=== PATIENT | female | born 1950 | race Caucasian/White ===

== ENCOUNTER → 2018-07-29 09:35 | Outpatient (CLI) | payer MEDICARE, SELFPAY ==
[2018-07-29 10:33] LABS: Add Manual Diff / Slide Review NO; Basophils Absolute Auto 100 /uL (0-100); Eosinophils Absolute Auto 200 /uL (0-450); Eosinophils Percent Auto 4.3 % (2-4); Hematocrit 38.3 % (36-46); Hemoglobin 12.6 g/dL (12.0-16.0); Lymphocytes Absolute Auto 1000 /uL (1100-4500); Lymphocytes Percent Auto 18.9 % (25-40); Mean Corpuscular Hemoglobin 30.1 PG (26-34); Monocytes Absolute Auto 400 /uL (0-900); Monocytes Percent Auto 7.3 % (3-14); Neutrophils Absolute Auto 3600 /uL (1500-7000); Neutrophils Percent Auto 68.5 % (50-75); Platelet Count 246 X10^3/uL (150-400); Red Cell Distribution Width 14.9 % (11.6-14.8); White Blood Cell Count 5.2 X10^3/uL (4.5-11.0)
[2018-07-29 10:47] LABS: Carbon Dioxide 30 mmol/L (22-32); Chloride 104 mmol/L (98-107); HEMOLYSIS < 15 (0-50); Potassium 4.4 mmol/L (3.4-5.1); Sodium 141 mmol/L (137-145)
== END ==
PROVIDERS: Visit Provider Orthopaedic Surgery
DX: M16.10 Unilateral primary osteoarthritis, unspecified hip (principal); Z01.818 Encounter for other preprocedural examination; Z01.812 Encounter for preprocedural laboratory examination
CPT/HCPCS: 36415; 80051; 85025; 93005; 93010

== ENCOUNTER 2018-08-20 06:04 | Inpatient (IN) | payer MEDICARE, SELFPAY ==
[2018-08-07 12:36] VITALS: BMI 27.8
[2018-08-20] VITALS (17 sets, daily range): BP systolic 78–142; BP diastolic 37–70; PULSE 60–78; RESP 12–18; TEMP 35.6–36.7; O2SAT 94–100; BMI 27.8
--- NOTE | 2018-08-20 06:00 | DI.RAD.S_ITS ---
PROCEDURE: XR PELVIS 1-2V INDICATIONS: post op Right SLOAN TECHNIQUE: 1 view of the lower pelvis acquired. COMPARISON: [facility] [place], [place], XR PELVIS WITH LATERAL HIP RIGHT, 08/12/2018, 15:14. FINDINGS: Bones: Patient is status post right hip arthroplasty, with hardware components in expected positions. The hip joint appears congruent. The visualized bony structures appear intact. There is mild/moderate left hip joint degeneration. Soft tissues: Overlying postoperative changes are noted. No suspicious soft tissue densities. IMPRESSION: Right hip prosthesis in anatomic alignment. Dictated by: Teagan Low M.D. on 08/20/2018 at 12:29 Approved by: Teagan Low M.D. on 08/20/2018 at 12:30
[2018-08-20] MEDS: CELECOXIB 200 MG CAPSULE PO (06:44)
[2018-08-20] MEDS: PREGABALIN 75 MG CAPSULE PO (06:44)
[2018-08-20] MEDS: ACETAMINOPHEN 325 MG TABLET 975 MG PO ×2 (06:44→22:36)
[2018-08-20] MEDS: LACTATED RINGERS 1,000 ML 42 ML IV ×2 (07:00→10:44)
--- NOTE | 2018-08-20 07:54 | PM.PREOP ---
Pre-operative Note Interval Note History & Physical reviewed/Exam performed by Physician: Yes Changes to H&P: No
[2018-08-20] MEDS: CEFAZOLIN 2 GM/100 ML FROZ.PIGGY IV ×3 (07:55→23:43)
--- NOTE | 2018-08-20 08:33 | SUR.OPER ---
Head on pillow. Supine on [place] table with bilateral legs secured in padded boots in traction leg positioners. . Arms on padded arm boards with <90 degree abduction, secured with tape over blanket over chest.
[2018-08-20] MEDS: KETOROLAC 30 MG/ML VIAL IV (08:49)
[2018-08-20] MEDS: MORPHINE 4 MG/ML INJ INJ (08:50)
[2018-08-20] MEDS: ROPIVACAINE 0.5% PF 5 MG/ML 20ML AMP 60 ML INJ (08:50)
[2018-08-20] MEDS: TRANEXAMIC ACID 1,000 MG VIAL 2000 MG INJ ×2 (08:55→09:48)
--- NOTE | 2018-08-20 09:54 | SUR.OPER ---
Patient's capillary refill of bilateral toes checked periodically during case. <1 second refill time each check. Dr. Hope notified.
--- NOTE | 2018-08-20 10:32 | P.OP_ITS ---
Operative Date/Time/Diagnoses Date of procedure: 08/20/18 Time of procedure: 10:22 Pre-op diagnosis: Right hip degenerative joint disease Post-op diagnosis: same Procedure & Clinicians Procedure: Right total hip arthroplasty, direct anterior approach (CPT code 67408 with bilingual executive assistant) Same procedure as scheduled: Yes Indications: Patient is an 67-year-old female with severe right hip DJD. The patient has pain with activities and at rest, limited ambulation and activity tolerance, difficulties with ADLs, and failure of conservative treatment. We have discussed the nature of condition, treatment options, risks and benefits, and patient elects to proceed with total hip arthroplasty via direct anterior approach and gives informed consent. Surgeon: Navid Hope Train Operations Manager: Dominic Mead Anesthesia Type: General and Spinal Operative Notes Closure Type: primary Specimen(s): none sent Prosthetic devices, grafts, tissues, transplants, or devices: Acetabulum: George and Nephew R3 acetabular component size 54 mm Femoral component: George and Nephew Anthology stem size 7 with standard offset Femoral head: 36 mm + 0 Oxinium Estimated Blood Loss (mL): 300 Blood products transfused: none Procedure in detail: Patient brought to the operating room and after satisfactory induction of the anesthetic and administration of IV antibiotics placed supine on the [place] table with all bony prominences well padded and both feet in the Honda boots. Procedure begins with the legs in the neutral position. Right hip and lower extremity prepped and draped in the usual sterile fashion. Longitudinal incision created beginning just distal and lateral to the ASIS. This was carried through the skin and subcutaneous tissues down to the fascia which was then incised longitudinally exposing the tensor fascia terry which was then retracted posteriorly. The superior femoral neck recess was identified and a Cobra retractor was placed. Gelpi retractor placed distally and the circumflex vessels identified and cauterized. Anteromedial retractors then placed and the anterior capsule was incised exposing the femoral neck. Superolateral capsulectomy performed. The level of the femoral neck cut was identified fluoroscopically then femoral neck cut created and then the femoral head removed with a corkscrew device. Acetabular retractors then placed an acetabular labrum and osteophytes excised. Sequential reaming of the acetabulum to 53 mm was performed with an excellent circumferential ream and fit with trial. A size 54 mm George and Nephew R3 acetabular component was selected inserted and impacted into position with excellent position and fixation achieved this is also confirmed with fluoroscopic images. Soft tissue then removed off the lateral femoral neck in further anterosuperior and posterior superior capsular tissue excised and further proximal lateral and posterior releases performed. Retractors then placed in the leg was dropped to the floor and abducted with maximal external rotation. The femoral canal was entered and the chili pepper broach was inserted. Position of the broach confirm satisfactory in both AP and lateral planes and the femoral neck cut length confirmed as satisfactory. Sequential broaching to 7 was performed with an excellent and snug fit with the 7 broach and a trial reduction yielded excellent leg length range of motion and stability characteristics and length offset and position confirmed with fluoroscopic images. The trial broach was then removed, and the wound was copiously irrigated. Periarticular soft tissues infiltrated with a combination of ropivacaine, Toradol, and morphine. Permanent size 7 George and Nephew anthology stem was then inserted with excellent fit and position and a permanent 36 mm +0 Oxinium head was impacted. The hip was then reduced and fluoroscopic images demonstrated excellent leg length and position. With the leg externally rotated 100? in full extension there was excellent stability with anterior distraction with the bone hook. The wound was again copiously irrigated and the fascia was closed with a running 1 Vicryl. Subcutaneous tissues closed with 2 O Vicryl and a running intracuticular stitch and skin adhesive. Sterile dressings applied. The anesthetic terminated. Patient taken to postanesthetic recovery in satisfactory condition. Complications: none Condition: stable Disposition: PACU Plan for aftercare: Patient will be admitted to the acute care ricks, and anticipate discharge on postop day 1 or 2 with follow-up in office in 10-14 days. Outpatient physical therapy will be arranged and patient will continue to observe posterior hip precautions. Patient will continue use of postoperative Lovenox for 10 days postop.
--- NOTE | 2018-08-20 12:19 | CM.DANOTE ---
DCP/Assessment: Reviewed chart. Patient is 67yr old female admitted to [facility] for right SLOAN performed on 08-20-[address] Hope. PCP is WHEEL SHOP SUPERVISOR/Liz Galdamez. Primary payor is [facility]. Met with patient and spouse/Juvencio at bedside explained CM/SW role. Patient recently completed surgery and now in room# 209. Patient alert and oriented but remains a lil groggy. Spouse reports that they live in [place] home [place] [facility]. Current d/c plan is return home when medically stable. Patient has therapy evaluation pending. Notified patient and spouse that CM team will continue to follow up if d/c needs were to arise. Patient and spouse appreciative. P: Anticipate home when stable but would benefit from CM visit after seen by therapy to determine needs. Unsure if patient already has FWW. Continue to follow closely. KAVITHA Rosen Discharge Planning/Care Management CM Discharge Assessment Start: 08/20/18 12:16 Freq: Status: Active Protocol: Document 08/20/18 12:16 KJS (Rec: 08/20/18 12:19 KJ [id number]) Discharge Planning Assessment Assigned Ultrasound Tech KAVITHA Rosen Contact Information Juvencio Joy (spouse) [phone] Advance Directives? No History Provided By Patient Significant Other Medical Record Prior Living Arrangements House Household Members spouse Type of transporation used prior to Drives own vehicle admit Independent with ADL's Yes Is patient alert and oriented? Yes Caregiver for Another No Comment Unsrue if patient owns FWW Patient/Family Preference OP PT Therapy Barriers to Discharge No Discharge Plan Home Transportation Arrangement Family to provide transport Additional Comment Unsure at this time. Whiteboard Updated in Patient Room with Yes name and ext. # of Ultrasound Tech Review Status In Process Next Review Type Continued Stay Review Pre-Anesthesia Assessment Start: 08/07/18 12:36 Freq: Status: Active Protocol: Document 08/07/18 12:36 CAB (Rec: 08/07/18 13:34 CAB [id number]) Pre-Anesthesia Assessment PAC Comment Pt has pacemaker, form on chart, no rep required Patient Also Known As (AKRadha) Christopher or Vilma Patient Information Reviewed Via Phone Assessment Assessment Completed With Patient Diagnostic Results BMP/CMP CBC EKG Comment Labs/EKG @ [facility] 07/29/18 Primary Care Provider Liz Galdamez Seen Specialist in Last 12 Months Yes Specialist Seen Wet Primer Powder Blender Orthopedist Distribution Accounting Clerk Comment Cardiac, Pulmonary clearances scanned to record Primary Language Greenlandic Document Preparation Specialist Required No Height 173.99 cm Weight 84.368 kg Body Mass Index (BMI) 27.8 Hearing Ability Normal Visual Assist Glasses Dentition Type Teeth, Natural Present Barriers to Learning None Other Aids No Hx Anesthesia Reactions No Hx Family Anesthesia Reaction No Hx Malignant Hyperthermia No Hx Blood Transfusions No Anesthesia Review Requested Yes: PAC courtesy re: Cardio- pulmonary history Tea And Spice Supervisor No alcohol intake current alcohol intake frequency a few times a month Smoking Status Never smoker Substance Use Type does not use Pain Present Pain Reported Musculoskeletal Symptoms Abnormal Gait Difficulty Walking Joint Pain History of Falling (Recent or History of Yes ) Patient is completely paralyzed or No completely immobile Mental Status Oriented to own ability Is patient on oxygen? No Does patient have ROBERTS/SOB No Hx Sleep Apnea No Comment Hx of chronic right middle lobe collapse, mediastinal lymphadenopathy Currently Taking a Beta Miki No Can You Climb a Flight of Stairs Without Yes SOB Hx Chest Pain No Hx SOB No Hx Syncope or Dizziness Yes: Syncopal episodes, last episode >1 year Anti-Coagulant Therapy No Has a Wet Primer Powder Blender Yes: Dr. Rodney-last visit Cardiac Testing No Hx Pacemaker/ICD Yes Pacemaker Rep Required? No Cardiac Clearance Received Yes Comment Cardiac records/pacer form scanned to record Diet Type At Home Regular Ketogenic dysphagia No Bladder Pattern Incontinent Urinary Catheter Present No Hx Urinary Self Catheterization No Diabetes No Patient No Lactating No Hx Drug Resistant Organism No Presence of External or Internal Medical Yes: Pacemaker Devices Have you traveled outside the [facility] in the last 30 days? Marital Status Lives With spouse Prior Living Arrangements House Number of Floors (Floors) 3 or More Floors Support System Child/Children Spouse Does the Patient Have Assistance After Yes Surgery Patient Discharge Plan Description Return Home Comment Pt advised 2 night length of stay per surgeon's office Feels Safe in Current Environment Yes Been Physically Hurt or Threatened By a No Person in Current Environment Do you have thoughts of harming yourself None or others? Are you currently considering suicide? No Do you have a plan to hurt yourself or No Plan others? Do You Have Any Spiritual Beliefs That No May Affect Your HC Choices? Do You Have Any Cultural Practices That No May Affect Your HC Choices? Spiritual Referral None Comment Tenriism Who Can We Speak to About Patient's Care Family, friends Identifying Code for Release of Patient Declines to issue Information Health Care Proxy/Next of Kin Les () Health Care Proxy Emergency Contact Name Les () Emergency Contact Advance Directives? No: Declines further information PAC Instructions Do not shave/clip surgical site Durable medical equipment Medications to take/avoid Nasal antibiotic No ETOH/petroleum product on skin DOS NPO Post-op transportation Pre-surgical wash Sturdy shoes/comfortable clothes Do not bring valuables and remove jewelry
[2018-08-20] MEDS: LACTATED RINGERS 1,000 ML 125 ML IV (12:30)
--- NOTE | 2018-08-20 13:07 | PC.NURSE ---
Addendum entered by Mitzi Marks R.N. 08/20/18 16:29: This health underwriter spoke with Dr Hope who confirmed that the surgery was anterior approach. He was grateful that someone noticed the discrepancy and said he was going to go in and edit his note. He gave his cell# should any [id number] concerns arise with this patient. Addendum entered by Mitzi Marks R.N. 08/20/18 15:45: This health underwriter spoke with RN in PACU that took care of this patient and she confirmed that it was an anterior approach. She said she will still have Dr Hope call when he's out of surgery to talk to the bandar estrada RN. PT Priti informed of the same and she's headed in to see patient now. Addendum entered by Mitzi Marks R.N. 08/20/18 14:38: Faxed note to Dr Hope in surgery asking for clarification re: approach for surgery and appropriate precautions. The op-note indicates anterior approach in one section and posterior approach in the other. Awaiting call back. Original Note: Post-op: Arrived to room 209 at 1115. Alert and oriented X3. Denies pain. Reports numbness/tingling in BLE's resolving since she's been up here. She can wiggle her toes and move her legs a bit. Feet warm, pink and with cap refill <2 sec. Dressing to R hip C/D/I, ice pack in place. SCD's to BLE's, encouraged ankle waving and coughing/deep breathing. Denies N/V. Lungs CTA, sats on RA high 90's. Cont pulse ox in place. Vitals stable, patient asymptomatic (re: BP systolic in the 90's) IVF per order, site in R hand WNL. Oriented to room and call light, encouraged to make needs known. No carnes, no urge to void as of this time. Resting quietly in bed, denies needs at this time. Light in reach, bed alarm on.
--- NOTE | 2018-08-20 15:37 | PT.IIE ---
Current Diagnoses Unilateral primary osteoarthritis, right hip (08/20/18) Surgery Performed Operation Date: 08/20/18 07:45 Actual Procedures p Total Hip Arthroplasty/Anterior Approach(Right) - Navid Hope MD Surgical History (Last Updated 08/07/18 @ 15:21 by Jane Nelson, RN) History of bronchoscopy (Acute 01/12/15) Hx of cardiac catheterization (Acute) Hx of section (Acute) Hx of tonsillectomy (Acute) Medical History (Last Updated 08/07/18 @ 15:21 by Jane Nelson RN) Arrhythmia (Acute) Collapse of right lung (Acute) Depression (Acute ~2005) Fall (Acute ~2017) HLD (hyperlipidemia) (Acute) HTN (hypertension) (Acute) Hx of concussion (Acute ~1965) Hypothyroidism (Acute) Mediastinal lymphadenopathy (Acute) Osteoarthritis (Acute) Pacemaker (Acute ~05/2009) Pericardial effusion (Acute ~2015) Pneumonia (Acute ~06/2014) SSS (sick sinus syndrome) (Acute) Sarcoidosis (Acute) UTI (urinary tract infection) (Acute) Ventricular tachycardia, non-sustained (Acute ~02/2016) Physical Therapy Inpatient Evaluation/Re-Eval M1 PT/OT-IP Prior Functional Status Start: 08/20/18 17:41 Freq: NEEDED Status: Active Protocol: Document 08/20/18 15:37 AB (Rec: 08/20/18 18:19 AB [id number]) Medical Review Prior Functional Status Medical History Reviewed Yes Communication able to make needs known Mobility and Gait pt stated that she is modified independent with all mobilities and ambulation without AD but occasionally uses SPC for outdoor mobility Social History Household Members spouse Living Arrangements House Number of Floors (Floors) 3 or More Floors Number of Stairs To Enter/Railing? has 1 step to enter the house has 7 steps with L rail ascending to get to bedroom level has 3 steps without rails down to laundry area Pt also has a sunken living room: one step without rails Home Environment Standard Height Toilet Walk in Shower Home Equipment Front Wheel Walker Straight Cane Raised Toilet Seat w/Armrests Shower Seat with Backrest M2 PT-IP Current Condition Start: 08/20/18 17:41 Freq: NEEDED Status: Active Protocol: Document 08/20/18 15:37 AB (Rec: 08/20/18 18:19 AB [id number]) Physical Therapy Current Condition Current Condition Evaluation Date 08/20/18 Treatment Diagnosis s/p R SLOAN anterior approach; difficulty in walking Onset Date 08/20/18 Precautions Anterior Hip Precautions No Hip Extension No Hip External Rotation M3 PT-IP Subjective Start: 08/20/18 17:41 Freq: NEEDED Status: Active Protocol: Document 08/20/18 15:37 AB (Rec: 08/20/18 18:19 AB [id number]) Subjective Physical Therapy Visit Type Type Initial Evaluation Visit Start Time 15:37 Visit Stop Time 16:34 Number of WOOD DOWEL MACHINE OPERATOR Visits 57 Physical Therapy Visit Comments Patient Comments pt agreeable to do PT Therapy Pain Assessment Pain Present Pain Present Denied Pain M4 PT-IP Mobility and Gait Start: 08/20/18 17:41 Freq: NEEDED Status: Active Protocol: Document 08/20/18 15:37 AB (Rec: 08/20/18 18:19 AB [id number]) PT-Bed Mobility Assessment Supine to Sit Supine to Sit Standby Assistance Sit to Supine Sit to Supine Maximum Assistance 2 Person Assistance PT-Transfer Assessment Sit to and From Stand Sit to and from Stand Maximum Assistance 2 Person Assistance Use of Upper Extremities Equipment Transfer Assistive Device Gait Belt Front Wheeled Walker Orthotic/Prosthetic Devices or Brace: No Transfers Transfer Destination Bed Bedside Commode Transfer Technique Stand Pivot Transfer Ability Level of Assist Maximum Assistance 2 Person Assistance Use of Upper Extremities Comments Mobility Comments BP in supine: 144/55. pt completed supine to sit SBA and cues. pt sat on EOB. c/o slight dizziness but dissipated after ~ 4 min of sitting. BP in sitting 103/70 after 2 min of sittin/ 60. pt stated that she needs to use the toilet. positioned bedside commode next to the bed. pt completed sit to stand max A x 2 and max cues. pt completed stand step pivot transfer using FWW max A x 2 and max cue; (+) R knee buckling requiring max A x 2 for steadiness. pt c/o dizziness after transfers. NAC called for the nurse. pt assisted back to bed max A x 2 and max cues with PT assisting pt from the front to pivot pt. pt was able to scoot towards HOB max A x 2 and max cues. pt completed sit to supine max A x 2 and max cues. Left pt with nurse. BP supine: 101/49 Gait Assessment Comments Gait Comments unable at this time PT-Balance Assessment Sitting Balance and Reactions Static Sitting Balance Ability Good Dynamic Sitting Balance Ability Good Standing Balance and Reactions Static Standing Balance Ability Poor Dynamic Standing Balance Ability Poor Device Used FWW M5 PT-IP Objective Assessments Start: 08/20/18 17:41 Freq: NEEDED Status: Active Protocol: Document 08/20/18 15:37 AB (Rec: 08/20/18 18:19 AB [id number]) Orientation Orientation/Cognition Level of Alertness Alert Safety Awareness Decreased Safety Awareness Memory Description Short Term Impaired Comments pt seems to have difficulty following directions Gross Range of Motion Lower Extremity ROM Assessment Within Functional Limits Strength Lower Extremity Strength Assessment Right Impaired Knee 3+/5 Sensation Assessment Sensation Gross Sensation WNL Muscle Tone Muscle Tone WNL Yes M6 PT-IP Treatment Start: 08/20/18 17:41 Freq: NEEDED Status: Active Protocol: Document 08/20/18 15:37 AB (Rec: 08/20/18 18:19 AB [id number]) Physical Therapy Treatment Exercises Exercises Heel Slides Education Education Provided Precautions Weight Bearing Status Post-Op Packet Safety M7 PT-IP Assessment and Plan Start: 08/20/18 17:41 Freq: NEEDED Status: Active Protocol: Document 08/20/18 15:37 AB (Rec: 08/20/18 18:19 AB [id number]) PT Summary Assessment and Plan Potential Rehabilitation Potential Fair Status of Condition at Evaluation Evolving Summary Impairments Pain ROM Strength Balance Coordination Sensation Tone Cognition Bed Mobility Transfers Gait Activity Tolerance Assessment Summary pt unable to tolerate much activity with c/o dizziness during upright mobility. Pt also has R knee buckling during transfers. will continue to assess progress. d/c plan depending on progress and level of assistance. caregiver training will be conducted when appropriate as well as stair climbing training. Goals Bed Mobility Goal Standby Assistance Transfer Goal Standby Assistance Front Wheeled Walker Gait Goal Standby Assistance Front Wheel Walker Gait Distance 150 Other Goals up/down 1 steps using FWW CGA up/down 7 steps with L rail ascending CGA Days to Meet Goals 5 Frequency of Treatment Frequency Of Treatment Twice a Day Treatment Plan Other Recommendations and Next Treatment transfers, ambulation Focus Recommendations To Nursing Amount of Assist Needed 2 Person Assist PT/OT Assist Only Discharge Recommendations PT Discharge Recommendations Home with Assistance SNF Rehab Outpatient PT Other Discharge Recommendations depending on progress: SNF vs home with assist and outpt PT
--- NOTE | 2018-08-20 15:37 | PT.IIE ---
Current Diagnoses Unilateral primary osteoarthritis, right hip (08/20/18) Surgery Performed Operation Date: 08/20/18 07:45 Actual Procedures p Total Hip Arthroplasty/Anterior Approach(Right) - Navid Hope MD Surgical History (Last Updated 08/07/18 @ 15:21 by Jane Nelson, RN) History of bronchoscopy (Acute 01/12/15) Hx of cardiac catheterization (Acute) Hx of section (Acute) Hx of tonsillectomy (Acute) Medical History (Last Updated 08/07/18 @ 15:21 by Jane Nelson RN) Arrhythmia (Acute) Collapse of right lung (Acute) Depression (Acute ~2005) Fall (Acute ~2017) HLD (hyperlipidemia) (Acute) HTN (hypertension) (Acute) Hx of concussion (Acute ~1965) Hypothyroidism (Acute) Mediastinal lymphadenopathy (Acute) Osteoarthritis (Acute) Pacemaker (Acute ~05/2009) Pericardial effusion (Acute ~2015) Pneumonia (Acute ~06/2014) SSS (sick sinus syndrome) (Acute) Sarcoidosis (Acute) UTI (urinary tract infection) (Acute) Ventricular tachycardia, non-sustained (Acute ~02/2016) Physical Therapy Inpatient Evaluation/Re-Eval M1 PT/OT-IP Prior Functional Status Start: 08/20/18 17:41 Freq: NEEDED Status: Active Protocol: Document 08/20/18 15:37 AB (Rec: 08/20/18 18:19 AB [id number]) Medical Review Prior Functional Status Medical History Reviewed Yes Communication able to make needs known Mobility and Gait pt stated that she is modified independent with all mobilities and ambulation without AD but occasionally uses SPC for outdoor mobility Social History Household Members spouse Living Arrangements House Number of Floors (Floors) 3 or More Floors Number of Stairs To Enter/Railing? has 1 step to enter the house has 7 steps with L rail ascending to get to bedroom level has 3 steps without rails down to laundry area Pt also has a sunken living room: one step without rails Home Environment Standard Height Toilet Walk in Shower Home Equipment Front Wheel Walker Straight Cane Raised Toilet Seat w/Armrests Shower Seat with Backrest M2 PT-IP Current Condition Start: 08/20/18 17:41 Freq: NEEDED Status: Active Protocol: Document 08/20/18 15:37 AB (Rec: 08/20/18 18:19 AB [id number]) Physical Therapy Current Condition Current Condition Evaluation Date 08/20/18 Treatment Diagnosis s/p R SLOAN anterior approach; difficulty in walking Onset Date 08/20/18 Precautions Anterior Hip Precautions No Hip Extension No Hip External Rotation Other Precautions hip precautions clarification: nurse stated that clarification obtained from Dr Sangeeta Hope that pt has anterior hip precautions and not posterior hip precautions. Pt to follow Anterior hip precautions on RLE. M3 PT-IP Subjective Start: 08/20/18 17:41 Freq: NEEDED Status: Active Protocol: Document 08/20/18 15:37 AB (Rec: 08/20/18 18:19 AB [id number]) Subjective Physical Therapy Visit Type Type Initial Evaluation Visit Start Time 15:37 Visit Stop Time 16:34 Number of SOFT WATER MECHANIC Visits 57 Physical Therapy Visit Comments Patient Comments pt agreeable to do PT Therapy Pain Assessment Pain Present Pain Present Denied Pain M4 PT-IP Mobility and Gait Start: 08/20/18 17:41 Freq: NEEDED Status: Active Protocol: Document 08/20/18 15:37 AB (Rec: 08/20/18 18:19 AB [id number]) PT-Bed Mobility Assessment Supine to Sit Supine to Sit Standby Assistance Sit to Supine Sit to Supine Maximum Assistance 2 Person Assistance PT-Transfer Assessment Sit to and From Stand Sit to and from Stand Maximum Assistance 2 Person Assistance Use of Upper Extremities Equipment Transfer Assistive Device Gait Belt Front Wheeled Walker Orthotic/Prosthetic Devices or Brace: No Transfers Transfer Destination Bed Bedside Commode Transfer Technique Stand Pivot Transfer Ability Level of Assist Maximum Assistance 2 Person Assistance Use of Upper Extremities Comments Mobility Comments BP in supine: 144/55. pt completed supine to sit SBA and cues. pt sat on EOB. c/o slight dizziness but dissipated after ~ 4 min of sitting. BP in sitting 103/70 after 2 min of sittin/ 60. pt stated that she needs to use the toilet. positioned bedside commode next to the bed. pt completed sit to stand max A x 2 and max cues. pt completed stand step pivot transfer using FWW max A x 2 and max cue; (+) R knee buckling requiring max A x 2 for steadiness. pt c/o dizziness after transfers. NAC called for the nurse. pt assisted back to bed max A x 2 and max cues with PT assisting pt from the front to pivot pt. pt was able to scoot towards HOB max A x 2 and max cues. pt completed sit to supine max A x 2 and max cues. Left pt with nurse. BP supine: 101/49 Gait Assessment Comments Gait Comments unable at this time PT-Balance Assessment Sitting Balance and Reactions Static Sitting Balance Ability Good Dynamic Sitting Balance Ability Good Standing Balance and Reactions Static Standing Balance Ability Poor Dynamic Standing Balance Ability Poor Device Used FWW M5 PT-IP Objective Assessments Start: 08/20/18 17:41 Freq: NEEDED Status: Active Protocol: Document 08/20/18 15:37 AB (Rec: 08/20/18 18:19 AB [id number]) Orientation Orientation/Cognition Level of Alertness Alert Safety Awareness Decreased Safety Awareness Memory Description Short Term Impaired Comments pt seems to have difficulty following directions Gross Range of Motion Lower Extremity ROM Assessment Within Functional Limits Strength Lower Extremity Strength Assessment Right Impaired Knee 3+/5 Sensation Assessment Sensation Gross Sensation WNL Muscle Tone Muscle Tone WNL Yes M6 PT-IP Treatment Start: 08/20/18 17:41 Freq: NEEDED Status: Active Protocol: Document 08/20/18 15:37 AB (Rec: 08/20/18 18:19 AB [id number]) Physical Therapy Treatment Exercises Exercises Heel Slides Education Education Provided Precautions Weight Bearing Status Post-Op Packet Safety M7 PT-IP Assessment and Plan Start: 08/20/18 17:41 Freq: NEEDED Status: Active Protocol: Document 08/20/18 15:37 AB (Rec: 08/20/18 18:19 AB [id number]) PT Summary Assessment and Plan Potential Rehabilitation Potential Fair Status of Condition at Evaluation Evolving Summary Impairments Pain ROM Strength Balance Coordination Sensation Tone Cognition Bed Mobility Transfers Gait Activity Tolerance Assessment Summary pt unable to tolerate much activity with c/o dizziness during upright mobility. Pt also has R knee buckling during transfers. will continue to assess progress. d/c plan depending on progress and level of assistance. caregiver training will be conducted when appropriate as well as stair climbing training. Goals Bed Mobility Goal Standby Assistance Transfer Goal Standby Assistance Front Wheeled Walker Gait Goal Standby Assistance Front Wheel Walker Gait Distance 150 Other Goals up/down 1 steps using FWW CGA up/down 7 steps with L rail ascending CGA Days to Meet Goals 5 Frequency of Treatment Frequency Of Treatment Twice a Day Treatment Plan Other Recommendations and Next Treatment transfers, ambulation Focus Recommendations To Nursing Amount of Assist Needed 2 Person Assist PT/OT Assist Only Discharge Recommendations PT Discharge Recommendations Home with Assistance SNF Rehab Outpatient PT Other Discharge Recommendations depending on progress: SNF vs home with assist and outpt PT
[2018-08-20] MEDS: ATORVASTATIN 10 MG TABLET PO (17:16)
[2018-08-20] MEDS: VIT C/E/ZN/COPPR/LUTEIN/ZEAXAN CAPSULE 1 CAP PO (22:36)
--- NOTE | 2018-08-20 23:23 | PC.NURSE ---
A/O x4, hypotensive at begining of shift, 88/52, @ 1999 106/65, HR 63, 97.0. 100%RA, LS clear. right anterior hip incision XUAN espinosa. R hand LR @ 124. 1PA FWW to BSC can not urinate, bladder scan for 675mL urine. Up to BSC again for 50mg urine, 2250-stright cath for 550mL urine. Using I.S. for 2500. rooming in. Pt on matthew path. Bed alarm on for safety. Call light in reach.
--- NOTE | 2018-08-21 01:14 | PC.NURSE ---
2300- Pt POD#0 R total hip w/ aquacel drsg CDI. CMS intact, SED's in place bilaterally. Moving 1PA w/ FWW; cont SpO2 in place; VSS on RA; tolerating regular diet. LR running as ordered. Pt had difficulties voiding PO w/ straight cath completed @2300. Will cont to monitor. 0430- Pt up to BSC 1PA w/ FWW. Stable on her feet, using standard hip precautions. 0500- No void in BSC. Back to bed; bladder scan complete showing 37cc of urine total.
[2018-08-21 05:57] VITALS: BP 106/66; PULSE 60; RESP 16; TEMP 36.9; O2SAT 100
[2018-08-21] MEDS: LEVOTHYROXINE 100 MCG TABLET PO (06:18)
[2018-08-21] MEDS: LACTATED RINGERS 1,000 ML 125 ML IV (06:19)
[2018-08-21 06:21] LABS: Hematocrit 26.8 % (36-46); Hemoglobin 9.4 g/dL (12.0-16.0)
[2018-08-21 07:20] VITALS: BP 108/57; PULSE 60; RESP 16; TEMP 36.3; O2SAT 100
--- NOTE | 2018-08-21 08:19 | PM.PNPO.1 ---
Subjective Date Patient Seen: 08/21/18 Time Patient Seen: 08:19 Interval history: Patient denies pain. No fever chills. No nausea vomiting. Has been up once using bedside commode. No physical therapy yet. Patient's is home to assist her. Exam Vital Signs (past 8 hours): - 08/21/18 05:57 Temperature 98.5 F Pulse Rate 60 Respiratory Rate 16 Blood Pressure 106/66 Pulse Oximetry 100 Oxygen Delivery Method Room Air Oxygen Flow Rate 0 Narrative Exam Narrative: 67-year-old female resting comfortably in bed having breakfast in no apparent distress. Right anterior hip dressing is clean, dry intact. Sensation grossly intact to light touch distal right lower extremity. Right leg is warm and dry. Motor functions intact. Objective Labs Result Diagrams: 08/21/18 05:32 Labs: Laboratory Results - last 24 hr 08/21/18 05:32 Hgb 9.4 L Hct 26.8 L Assessment & Plan Post-op Postoperative Procedures Operation Date: 08/20/18 07:45 Actual Procedures Side Surgeon p Total Hip Arthroplasty/Anterior Approach Right Navid Hope MD Mobilize with physical therapy. Possible discharge today after physical therapy. Quality VTE Deep Vein Thrombosis/Pulmonary Embolism Present on Admission: No
[2018-08-21] MEDS: ENOXAPARIN 40 MG/0.4 ML SYRINGE SUBCUT (08:41)
[2018-08-21] MEDS: VIT C/E/ZN/COPPR/LUTEIN/ZEAXAN CAPSULE 1 CAP PO (08:41)
[2018-08-21] MEDS: ACETAMINOPHEN 325 MG TABLET 975 MG PO (08:41)
--- NOTE | 2018-08-21 11:00 | PT.IPTN ---
Current Diagnoses Unilateral primary osteoarthritis, right hip (08/20/18) Surgery Performed Operation Date: 08/20/18 07:45 Actual Procedures p Total Hip Arthroplasty/Anterior Approach(Right) - Navid Hope MD Physical Therapy Treatment Note M2 PT-IP Current Condition Start: 08/20/18 17:41 Freq: NEEDED Status: Active Protocol: Document 08/20/18 15:37 AB (Rec: 08/20/18 18:19 AB [id number]) Physical Therapy Current Condition Current Condition Evaluation Date 08/20/18 Treatment Diagnosis s/p R SLOAN anterior approach; difficulty in walking Onset Date 08/20/18 Precautions Anterior Hip Precautions No Hip Extension No Hip External Rotation Other Precautions hip precautions clarification: nurse stated that clarification obtained from Dr Sangeeta Hope that pt has anterior hip precautions and not posterior hip precautions. Pt to follow Anterior hip precautions on RLE. M3 PT-IP Subjective Start: 08/20/18 17:41 Freq: NEEDED Status: Active Protocol: Document 08/21/18 11:00 GGD (Rec: 08/21/18 12:38 GGD [email or web address]) Subjective Physical Therapy Visit Type Type Treatment Note Visit Start Time 10:30 Visit Stop Time 11:00 Total Visit Minutes 30 Number of CHERRY PICKER OPERATOR Visits 1 Physical Therapy Visit Comments Patient Comments Pt willing to work with therapy. Therapy Pain Assessment Pain Present Pain Present Denied Pain M4 PT-IP Mobility and Gait Start: 08/20/18 17:41 Freq: NEEDED Status: Active Protocol: Document 08/21/18 11:00 GGD (Rec: 08/21/18 12:38 GGD [id number]) PT-Bed Mobility Assessment Supine to Sit Supine to Sit Standby Assistance Scooting Scooting to Edge of Bed Standby Assistance PT-Transfer Assessment Sit to and From Stand Sit to and from Stand Standby Assistance Use of Upper Extremities Equipment Transfer Assistive Device Gait Belt Front Wheeled Walker Orthotic/Prosthetic Devices or Brace: No Transfers Transfer Destination Chair Toilet Transfer Ability Level of Assist Contact Guard Assistance Use of Upper Extremities Gait Assessment Gait Gait Assistance Required: Standby Assistance Distance (Feet) 150 Able to Maintain Weight Bearing Status No During Gait Assistive Devices Assistive Device Front Wheeled Walker Orthotic/Prosthetic Devices or Brace: No Gait Deviations General Gait Pattern Antalgic Decreased Stride Length Decreased Feet Clearance Factors Limiting Gait Function Factors Limiting Gait Function Decreased Activity Tolerance Decreased Strength Limited Range of Motion Pain Stair Climbing Assessment Evaluation Level of Assist On Stairs Standby Assistance Devices Stair Climbing Assistive Devices Left Railing Technique/Endurance Stair Climbing Direction Descend Stair Climbing Technique Step to Step Number of Steps Climbed 3 Query Text: Stair Climbing Set # Repetitions (reps) 2 M5 PT-IP Objective Assessments Start: 08/20/18 17:41 Freq: NEEDED Status: Active Protocol: Document 08/20/18 15:37 AB (Rec: 08/20/18 18:19 AB [id number]) Orientation Orientation/Cognition Level of Alertness Alert Safety Awareness Decreased Safety Awareness Memory Description Short Term Impaired Comments pt seems to have difficulty following directions Gross Range of Motion Lower Extremity ROM Assessment Within Functional Limits Strength Lower Extremity Strength Assessment Right Impaired Knee 3+/5 Sensation Assessment Sensation Gross Sensation WNL Muscle Tone Muscle Tone WNL Yes M6 PT-IP Treatment Start: 08/20/18 17:41 Freq: NEEDED Status: Active Protocol: Document 08/21/18 11:00 GGD (Rec: 08/21/18 12:38 GGD [email or web address]) Physical Therapy Treatment Exercises Exercises Ankle Pumps Gluteal Sets Quad Sets Heel Slides Education Education Provided Precautions M7 PT-IP Assessment and Plan Start: 08/20/18 17:41 Freq: NEEDED Status: Active Protocol: Document 08/21/18 11:00 GGD (Rec: 08/21/18 12:38 GGD [email or web address]) PT Summary Assessment and Plan Summary Assessment Summary Pt improving with mobility. She was safe and stable with gait and stair mobility. Pt safe for home D/C when medically stable. Frequency of Treatment Frequency Of Treatment Twice a Day Treatment Plan Other Recommendations and Next Treatment transfers, ambulation Focus Recommendations To Nursing Amount of Assist Needed 1 Person Assist Discharge Recommendations PT Discharge Recommendations Home with Assistance Outpatient PT
[2018-08-21 12:00] VITALS: BP 93/56; PULSE 62; RESP 16; TEMP 36.8; O2SAT 99
--- NOTE | 2018-08-21 12:42 | CM.DPC ---
DCP Discharge Home Per Ortho PA, pt likely stable for d/c home today pending final PT eval and recommendations. Per PT, pt safe for d/c home with assist from spouse and outpt PT. Per RN, currently no concerns at this time. Plan: SW to follow for likely pt d/c home via spouse POV and outpt PT later today when ride available. No SW needs at this time. KAVITHA Bear
== END 2018-08-21 13:35 | disposition home or self-care (01) | DRG 470 ==
PROVIDERS: Admitting Provider Orthopaedic Surgery; Visit Provider Orthopaedic Surgery
PROC: 0SR902Z Replacement of Right Hip Joint with Metal on Polyethylene Synthetic Substitute, Open Approach (ICD-10-PCS; CPT 27130; principal; 2018-08-20 07:45)
DX: M16.11 Unilateral primary osteoarthritis, right hip (principal); I49.5 Sick sinus syndrome; Z95.0 Presence of cardiac pacemaker; E78.5 Hyperlipidemia, unspecified; D86.9 Sarcoidosis, unspecified
CPT/HCPCS: 36415; 72170; 85014; 85018; 97116; 97162; 97530; C1776; J0690; J1100; J1650; J1885; J2250; J2270; J2274; J2405; J2704; J2795; J3010

== ENCOUNTER 2022-10-19 11:43 | Day surgery (SDC) | payer MEDICARE, SELFPAY ==
[2018-08-20 06:30] VITALS: BMI 27.8
[2022-10-11 12:59] VITALS: BMI 26.9
[2022-10-19] VITALS (9 sets, daily range): BP systolic 93–144; BP diastolic 46–68; PULSE 54–60; RESP 11–20; TEMP 36.1–37.1; O2SAT 96–100; BMI 26.9; BMI 33.2
--- NOTE | 2022-10-19 06:00 | DI.RAD.S_ITS ---
PROCEDURE: XR HIP W PEL IF DONE LT 2V INDICATIONS: LEFT TOTAL HIP ANTERIOR TECHNIQUE: 2 view(s) of the hip acquired. COMPARISON: None. FINDINGS: Bones: Intraoperative imaging demonstrates left hip arthroplasty, with hardware components in expected positions. The hip joint appears congruent. The visualized bony structures appear intact. Soft tissues: Overlying postoperative changes are noted. No suspicious soft tissue densities. IMPRESSION: Expected postsurgical change for left hip arthroplasty. Dictated by: Renée Peck MD, PhD on 10/19/2022 at 17:05 Approved by: Renée Peck MD, PhD on 10/19/2022 at 17:06
[2022-10-19] MEDS: ACETAMINOPHEN 325 MG TABLET 975 MG PO (12:29)
[2022-10-19] MEDS: VANCOMYCIN 1,000 MG/200 ML PIGGYBACK 200 MG IV (12:29)
[2022-10-19] MEDS: CELECOXIB 200 MG CAPSULE PO (12:29)
[2022-10-19] MEDS: CEFAZOLIN 2 GM/100 ML PREMIX 100 ML IV ×2 (13:40→21:06)
[2022-10-19] MEDS: TRANEXAMIC ACID 1,000 MG VIAL 2000 MG INJ ×2 (14:05→16:01)
--- NOTE | 2022-10-19 14:21 | SUR.OPER ---
Supine on padded Gardner table with bilateral legs secured in padded positioning boots and suspended in positioning spars, operative leg in traction per surgeon. Head on one pillow. Arm on non-operative side secured on padded armboard <90 degrees abduction. Arm on operative side padded and resting across chest then secured with tape over sheet. Padded perineal post in place per surgeon.
[2022-10-19] MEDS: BUPIVACAINE 0.25% (PF) 60 ML, EPINEPHrine 0.3 MG INJ (14:31)
[2022-10-19] MEDS: BUPIVACAINE LIPOSOME 266 MG/20 ML VIAL INJ (14:32)
[2022-10-19] MEDS: LACTATED RINGERS 1,000 ML 42 ML IV (14:35)
--- NOTE | 2022-10-19 16:48 | P.OP_ITS ---
Operative Date/Time/Diagnoses Date of procedure: 10/19/22 Time of procedure: 14:30 Pre-op diagnosis: Severe left hip OA Post-op diagnosis: same Procedure & Clinicians Procedure: Left total hip arthroplasty anterior approach Same procedure as scheduled: Yes Indications: The patient has had progressively worsening left hip pain with radiographic changes consistent with arthritis. Non-operative management has failed and the patient has requested total hip replacement. The risks, benefits and alternatives to surgery were discussed with the patient prior to proceeding. Risks discussed included, but were not limited to, failure to relieve pain, leg length discrepancy, dislocation, stiffness, infection, nerve damage, deep venous thrombosis, pulmonary embolism, stroke, coma, heart attack, permanent paralysis and , as well as the potential need for eventual revision of the prosthetic. Surgeon: Radha [employer] Supervisor: Dominic Mead Anesthesia Type: General and Spinal Operative Notes Findings: Severe left hip OA, adequate stability, adequate bone Closure Type: primary Specimen(s): none sent Prosthetic devices, grafts, tissues, transplants, or devices: George and nephew size 54 R3 cup, neutral poly liner,one 6.5 mm screw, 36 x +0 cobalt chrome head, size 6 standard offset anthology Estimated Blood Loss (mL): 250 Blood products transfused: none Procedure in detail: The patient was brought to the operating room. Patient was carefully positioned in the supine position. Time-out was performed and antibiotics were given. Anesthesia was induced. She was positioned in the on the table in order to allow hyperextension of the hip. The left lower extremity was prepped and draped in a standard sterile fashion. An anterior left hip incision was made 1 fingerbreadth lateral to the anterior superior iliac spine and extended distally towards the greater trochanter. Dissection was carried out through skin and subcutaneous tissues. Superficial hemostasis was achieved. The fascia over the tensor fascia terry was defined and incised with a knife. Two Allis clamps were used to grasp the fascia. Tensor fascia terry was retracted laterally. A gelpi retractor was placed. Dissection was carried out down along the neck. The circumflex vessels were carefully identified and cauterized with the Aqua Mantis. A PA was used during the procedure was essential for retraction and safe implantation of the components. They were also important for adequate hemostasis. There was good visualization of the femoral neck. A Cobra was placed superior to the neck and the gluteus fibers were carefully stripped from that superior aspect of the capsule. A 2nd retractor was placed along the inferior aspect of the neck. The rectus insertion along the capsule was partially released. A 3rd retractor that was then gently placed over the rim of the acetabulum under the rectus. Capsule was carefully incised and released from the intertrochanteric line circumferentially superior to the mid sagittal line and inferiorly to the mid sagittal line until the lesser trochanter was palpable. A tag stitch was placed both in the superior and inferior limb of the capsular insertion. Along the acetabulum capsule was also released up to the mid sagittal 12:00 position. A portion of the labrum was resected. A saw was used to perform an osteotomy at the level of the intertrochanteric line and the junction of the superior femoral neck leaving approximately 1 finger breath of residual inferior neck above the lesser trochanter. A 2nd cut was made along the femoral neck at the base of the head and a napkin ring of neck was removed. Corkscrew was placed in the femoral head and the head was removed without difficulty. Retractors were then repositioned around the acetabulum. Residual labrum was resected and additional osteophytes were removed. A reamer that was 4 mm below the templated size was placed by hand in the acetabulum and it was reamed to centralize the acetabulum. It was then reamed up to 2 under the templated size and fluoroscopy was brought in to confirm the position of the reaming and depth of reaming. I reamed 1 under the anticipated size. A trial cup was placed and noted that it was appropriately sized and fluoroscopy confirmed position and depth. The component was open and inserted without difficulty fluoroscopic imaging was used to confirm that the cup had been adequately seated and was well positioned. It was further stabilized with a single screw. Neutral poly liner was placed. The cup was tested and noted to be stable. Attention was then directed to the femur. The femur was gently hyperextended additional capsular release was performed as needed in order to allow adequate visualization of the proximal femur with elevation of the femur. Patient was placed in a hyperextended slightly adducted position with maximum external rotation. Box osteotome was used to check for any residual neck as well as sclerotic bone along the trochanter. [place] pepper was placed in the femur. Additional broaching was performed. Canal finder was used to determine the alignment of the canal and position. Size 1 broach was placed. The canal was then appropriately broached up to the templated size as long as there was adequate stability of the broach and serial advancement of the broach without excessive impingement. Specific attention was directed at avoiding varus atte mpting to direct the distal aspect of the broach more anteriorly and avoiding excessive anteversion. Trial reduction showed acceptable range of motion, good stability, no posterior impingement, confucianist of leg length and appropriate lateral shuck. I also hyperflexed the hip and checked that there was no impingement anteriorly and there was good stability with flexion, adduction and internal rotation. Marcaine and Exparel were injected. The stem was placed without difficulty. Repeat trial reduction and x-ray showed acceptable overall position, length, and no evidence of the femoral fracture. Final head was placed. Wound was meticulously irrigated with normal saline. The hip was reduced and additional Exparel and Marcaine were injected. The capsule was closed with interrupted nonabsorbable sutures. The fascia of the tensor was closed with interrupted and running Vicryl. No drain was placed. Any tensor fascia terry muscle that appeared to be contused or injured which was a minimal amount was carefully resected. Capsule around the tensor was injected with Exparel and Marcaine. The skin was closed with barbed stitches for the subcutaneous tissue and skin. We also used surgical glue. The wound was dressed sterilely. Brief Betadine soak was also used and was meticulously irrigated with normal saline. Patient was transferred to recovery room in satisfactory condition. Complications: none Post-operative Condition: stable Disposition: observation Plan for aftercare: The patient will be maintained on a standard total hip replacement protocol with weight bearing as tolerated and anterior hip precautions. The patient will receive Aspirin and sequential compression devices for DVT prophylaxis. The patient will be discharged home when safe for the home environment.
[2022-10-19] MEDS: HYDROCODONE/ACET 5/325 TABLET 1 TAB PO (16:54)
--- NOTE | 2022-10-19 17:00 | DI.RAD.S_ITS ---
PROCEDURE: XR HIP W PEL IF DONE LT 2V INDICATIONS: LEFT ANTERIOR TOTAL HIP TECHNIQUE: AP pelvis and lateral view of the left hip acquired. COMPARISON: [facility], RF, HIP INJECTION, 06/09/2022, 10:04. [facility], CR, XR PELVIS WITH LATERAL HIP LEFT, 05/18/2022, 10:22. [facility], CR, XR HIP W PEL IF DONE LT 2V, 10/19/2022, 15:07. FINDINGS: Bones: Patient is status post left hip arthroplasty, with hardware components in expected positions. The hip joint appears congruent. The visualized bony structures appear intact. Note is made of The prior right hip arthroplasty. Soft tissues: Overlying postoperative changes are noted. No suspicious soft tissue densities. IMPRESSION: Expected postsurgical change. Dictated by: Teagan Low M.D. on 10/19/2022 at 17:05 Approved by: Teagan Low M.D. on 10/19/2022 at 17:06
[2022-10-19] MEDS: ONDANSETRON 4 MG/2 ML INJ IV (17:35)
[2022-10-19] MEDS: LACTATED RINGERS 1,000 ML 100 ML IV (17:39)
[2022-10-19] MEDS: OXYCODONE IR 10 MG TABLET PO (17:57)
[2022-10-19] MEDS: IBUPROFEN 400 MG TABLET PO ×2 (17:58→21:05)
[2022-10-19] MEDS: ACETAMINOPHEN 325 MG TABLET 650 MG PO (17:58)
[2022-10-19] MEDS: ASPIRIN EC 81 MG TABLET PO (21:05)
[2022-10-19] MEDS: DOCUSATE 100 MG CAPSULE PO (21:05)
[2022-10-19] MEDS: ATORVASTATIN 20 MG TABLET 10 MG PO (21:05)
[2022-10-20] MEDS: LACTATED RINGERS 1,000 ML 100 ML IV (03:11)
[2022-10-20] MEDS: ACETAMINOPHEN 325 MG TABLET 650 MG PO ×2 (06:12→10:33)
[2022-10-20] MEDS: IBUPROFEN 400 MG TABLET PO ×2 (06:12→09:33)
[2022-10-20] MEDS: LEVOTHYROXINE 100 MCG TABLET PO (06:13)
[2022-10-20] MEDS: CEFAZOLIN 2 GM/100 ML PREMIX 100 ML IV (06:13)
[2022-10-20 06:49] LABS: Hematocrit 32.5 % (36-46); Hemoglobin 11.2 g/dL (12.0-16.0)
--- NOTE | 2022-10-20 07:39 | PM.DS.1 ---
History of Present Illness History of Present Illness Date Patient Seen: 10/20/22 Time Patient Seen: 07:39 Chief complaint: OPB Narrative: Operative Date/Time/Diagnoses Date of procedure: 10/19/22 Time of procedure: 14:30 Pre-op diagnosis: Severe left hip OA Post-op diagnosis: same Procedure & Clinicians Procedure: Left total hip arthroplasty anterior approach Same procedure as scheduled: Yes Indications: The patient has had progressively worsening left hip pain with radiographic changes consistent with arthritis. Non-operative management has failed and the patient has requested total hip replacement. The risks, benefits and alternatives to surgery were discussed with the patient prior to proceeding. Risks discussed included, but were not limited to, failure to relieve pain, leg length discrepancy, dislocation, stiffness, infection, nerve damage, deep venous thrombosis, pulmonary embolism, stroke, coma, heart attack, permanent paralysis and , as well as the potential need for eventual revision of the prosthetic. Surgeon: Radha George Licensed Aircraft Maintenance Engineer: Dominic Mead Anesthesia Type: General and Spinal Operative Notes Findings: Severe left hip OA, adequate stability, adequate bone Closure Type: primary Specimen(s): none sent Prosthetic devices, grafts, tissues, transplants, or devices: George and nephew size 54 R3 cup, neutral poly liner,one 6.5 mm screw, 36 x +0 cobalt chrome head, size 6 standard offset anthology Estimated Blood Loss (mL): 250 Blood products transfused: none Discharge Providers Provider Discharge Date: 10/20/22 Consults: 10/19/22 06:00 Consult to Anesthesiology Routine Comment: Consulting Provider: Anesthesiologist Reason for consultation: Regional block for post operative pain control 10/19/22 17:20 Consult to Discharge Planning Routine Comment: Consult to Occupational Therapy Evaluate & Treat Comment: Physician Instructions: Evaluate and treat Consult to Physical Therapy Evaluate & Treat Comment: Physician Instructions: post op SLOAN protocol Discharge provider: Shahla Mccracken PA-C Summary Hospital Course Discharge Diagnosis: Left hip osteoarthrits, s/p left total hip arthroplasty Hospital Course: Ms Joy's hospital course was unremarkable. On the morning of POD# 1, she was very focused on getting to the bathroom to urinate. She had not yet been OOB w/ PT. She was receptive to going home later in the day if things went well w/ PT. Her pain was well-controlled w/ oral medication. Exam Vital Signs (past 8 hours): Oxygen Delivery Method Room Air Oxygen Flow Rate 0 Narrative Exam Narrative: 5/5 strength in hip flexors, quadriceps, hamstrings, DF, PF, EHL on left. Sensation to light touch intact in LLE. Calf soft, compressible, nontender. Aquacel dressing CDI. Objective Labs 10/20/22 06:15 Labs: Laboratory Results - last 24 hr 10/20/22 06:15 Hgb 11.2 L Hct 32.5 L PFSH Medical History (Updated 08/07/18 @ 15:21 by Jane Nelson RN) Arrhythmia Collapse of right lung Depression (~2005) Fall (~2017) HLD (hyperlipidemia) HTN (hypertension) Hx of concussion (~1965) Hypothyroidism Mediastinal lymphadenopathy Osteoarthritis Pacemaker (~05/2009) Pericardial effusion (~2015) Pneumonia (~06/2014) Sarcoidosis SSS (sick sinus syndrome) UTI (urinary tract infection) Ventricular tachycardia, non-sustained (~02/2016) Surgical History (Updated 10/11/22 @ 13:16 by Kaya Montes RN) History of bronchoscopy (01/12/15) History of total replacement of right hip Hx of cardiac catheterization Hx of section Hx of tonsillectomy Social History household members: spouse Smoking Status: Never smoker alcohol intake: current Discharge Assessment & Plan Assessment and Plan Assessment: Left hip osteoarthrits, s/p left total hip arthroplasty Plan of Treatment: Discharge home after PT if PT agrees. Multimodal pain control (pt has rxs), ASA BID x 6 weeks for VTE prophylaxis, outpt PT, f/u in office in 2 weeks as scheduled. Discharge Plan Discharge Plan Patient Disposition: Home Discharge orders & Medications Discharge Orders: Discharge (Order); Ordered 10/20/22 Ordered By: Shahla Mccracken Prescriptions: Continued atorvastatin 10 mg Tablet 10 mg PO QPM levothyroxine 100 mcg Tablet 100 mcg PO DAILY acetaminophen 325 mg Tablet 975 mg PO TID Qty: 1 0RF oxycodone 5 mg Tablet 5 mg PO Q3HR PRN (Reason: Pain, Moderate (4-6)) Qty: 1 0RF Follow up/Referrals: Radha George MD [Physician] - As previously scheduled (Follow up with Dominic Mead PA-C, on 11/01/2022 @ 1:30 pm at [facility] office in [place].) Diet/Activity/Treatments Diet: Diet as Tolerated Activity: Weightbearing as tolerated to left leg. Anterior hip precautions. Skin/Wound/Dressing Care Report to your healthcare provider any signs of infection, such as:: chills, fever, night sweats, unusual drainage and unusual redness Dressing: May shower. Leave dressing in place until follow up in office. No bathing or otherwise soaking incision. Call the office if the dressing becomes saturated inside. Visit Report/Discharge Packet Instructions: DI for Hip Replacement Stand Alone Forms: Patient Portal/API, Surgery Discharge Discharge Data Attending Provider: Radha George VTE Deep Vein Thrombosis/Pulmonary Embolism Present on Admission: No
[2022-10-20 09:09] VITALS: BP 116/42; PULSE 55; RESP 17; TEMP 36.1; O2SAT 96
--- NOTE | 2022-10-20 09:13 | CM.DANOTE ---
DCP: Chart review for case, met with patient at bedside, they agree to case management assessment. Completed DCP assessment based on information available. Patient is a 72 year old admitted for right TKA. is at bedside and states their son will be dedicated local truck driver home for DC today. PCP: Omar Alvarez Payer: [employer] Medicare DME: Cane, FWW, 4WW DCP: Home with supportive family and [facility] [place] Ana Marshall RN, CM Discharge Planning/Care Management CM Discharge Assessment Start: 10/20/22 09:11 Freq: Status: Active Protocol: Document 10/20/22 09:11 BQ (Rec: 10/20/22 09:12 BQ [id number]) Discharge Planning Assessment Assigned Low Voltage Technician Ana Marshall RN, CM Advance Directives? No Advance Directives on File No: patient states her PCP has a copy History Provided By Patient,Significant Other, Medical Record Has Patient been admitted in last 30 No days? Prior Living Arrangements House Household Members spouse Type of transporation used prior to Relies on Others admit Comment Hx memory impairment Independent with ADL's Yes Is patient alert and oriented? Yes: Oriented to person, place , circumstances Needs Assistance With Home Chores / Shopping Caregiver for Another No DME Already Rented / Owned FWW / Walker,Cane Comment Unsrue if patient owns FWW Patient/Family Preference OP PT Therapy Discharge Plan Home Transportation Arrangement Family to provide transport Whiteboard Updated in Patient Room with Yes name and ext. # of Low Voltage Technician Review Status In Process Next Review Type Continued Stay Review Pre-Anesthesia Assessment Start: 10/11/22 11:44 Freq: Status: Complete Protocol: Document 10/11/22 12:59 TC (Rec: 10/11/22 12:06 TC [id number]) Pre-Anesthesia Assessment Patient Information Reviewed Via Phone Assessment Assessment Completed With Patient Diagnostic Results BMP/CMP,CBC,Urinalysis Comment 09/01/22- scanned Primary Care Provider Liz Galdamez Medical Clearance Received Not Applicable Seen Specialist in Last 12 Months Yes Specialist Seen District Customs Director,Orthopedist Primary Language Ecuadorean Preferred Language Ecuadorean Height 173.99 cm Weight 81.647 kg Body Mass Index (BMI) 26.9 Hearing Ability Normal Visual Impairment Partially Limited Visual Assist Glasses,Magnifying Glass Dentition Type Teeth, Natural Present Other Aids No Hx Anesthesia Reactions No Hx Family Anesthesia Reaction No Hx Malignant Hyperthermia No Hx Blood Transfusions No Hx Blood Transfusion Reaction No Anesthesia Review Requested No Help Desk Engineer No alcohol intake current alcohol intake frequency a few times a month Smoking Status Never smoker Substance Use Type does not use Pain Present Pain Reported Musculoskeletal Symptoms Abnormal Gait,Difficulty Walking,Joint Pain,Joint Stiffness History of Falling (Recent or History of No ) Patient is completely paralyzed or No completely immobile Ambulatory Aid Crutches/cane/walker Prosthesis or Orthotic Device Cane Mental Status Oriented to own ability Comment some concern for ongoing memory issues Is patient on oxygen? No Does patient have ROBERTS/SOB No Hx Sleep Apnea No CPAP/BIPAP use not prescribed Currently Taking a Beta Miki No Can You Climb a Flight of Stairs Without Yes SOB Hx Chest Pain No Hx SOB No Hx Syncope or Dizziness No Anti-Coagulant Therapy No Has a District Customs Director Yes: last visit 04/22/21 District Customs Director name madi Cardiac Testing No Hx Pacemaker/ICD Yes Pacemaker Rep Required? No: see pacemaker form, scanned Cardiac Clearance Received Yes Comment cardiac records scanned Diet Type At Home Regular Dysphagia No Genitourinary Symptoms Dribbling Urinary Catheter Present No Hx Urinary Self Catheterization No Diabetes No Patient No Lactating No Hx Drug Resistant Organism No Presence of External or Internal Medical Yes: Pacemaker, Right hip Devices Have you had any close contact with No someone diagnosed with COVID-19? Are you experiencing any of these No symptoms symptoms? Marital Status Lives With spouse Current Living Arrangements House Number of Floors (Floors) 3 or More Floors Number of Stairs To Enter/Railing? one step to get into house and 9 to get up to the bedroom Support System Family,Spouse Does the Patient Have Assistance After Yes Surgery Patient Discharge Plan Description Return Home Additional comment son coming up from [place] to help Feels Safe in Current Environment Yes Been Physically Hurt or Threatened By a No Person in Current Environment Do you have thoughts of harming yourself None or others? Are you currently considering suicide? No Do you have a plan to hurt yourself or No Plan others? Do You Have Any Spiritual Beliefs That No May Affect Your HC Choices? Do You Have Any Cultural Practices That No May Affect Your HC Choices? Comment jewish Who Can We Speak to About Patient's Care family members Identifying Code for Release of Patient declines to issue Information Health Care Proxy/Next of Kin Trevon () Health Care Proxy Emergency Contact Name Trevon () Emergency Contact Advance Directives? Yes Advance Directives on File No: patient states her PCP has a copy Power of Submarine Cable Equipment Technician No PAC Instructions Do not shave/clip surgical site,Durable medical equipment ,Medications to take/avoid, Nasal antibiotic,No ETOH/ petroleum product on skin DOS, NPO,Pre-surgical wash,Sensory aids,Sturdy shoes/comfortable clothes,Do not bring valuables and remove jewelry
[2022-10-20] MEDS: ASPIRIN EC 81 MG TABLET PO (09:33)
[2022-10-20] MEDS: polyethylene glycoL 3350 17 GM POWD.PACK PO (09:33)
[2022-10-20] MEDS: DOCUSATE 100 MG CAPSULE PO (09:33)
[2022-10-20] MEDS: OXYCODONE IR 5 MG TABLET PO (09:33)
--- NOTE | 2022-10-20 09:34 | PT.IIE ---
Current Diagnoses Unilateral primary osteoarthritis, left hip (10/19/22) Surgery Performed Operation Date: 10/19/22 13:45 Actual Procedures p Total Hip Arthroplasty/Anterior Approach(Left) - Radha George MD Surgical History (Last Updated 10/11/22 @ 13:16 by Kaya Montes, RN) History of bronchoscopy (01/12/15) History of total replacement of right hip Hx of cardiac catheterization Hx of section Hx of tonsillectomy Medical History (Last Updated 08/07/18 @ 15:21 by Jane Nelson, [place]) Arrhythmia Collapse of right lung Depression (~2005) Fall (~2017) HLD (hyperlipidemia) HTN (hypertension) Hx of concussion (~1965) Hypothyroidism Mediastinal lymphadenopathy Osteoarthritis Pacemaker (~05/2009) Pericardial effusion (~2015) Pneumonia (~06/2014) Sarcoidosis SSS (sick sinus syndrome) UTI (urinary tract infection) Ventricular tachycardia, non-sustained (~02/2016) Physical Therapy Inpatient Evaluation/Re-Eval M1 PT/OT-IP Prior Functional Status Start: 10/20/22 07:48 Freq: NEEDED Status: Active Protocol: Document 10/20/22 08:40 MB (Rec: 10/20/22 09:33 MB [id number]) Medical Review Prior Functional Status Medical History Reviewed Yes Diet/Fluid Consistency Regular Communication Baseline dementia and some trouble with answering questions and son and are helpful, son is NEZ PERCE Mobility and Gait Mod I with cane and liked to walk at the park Activities of Daily Living and IADL's Mod I to superv d/t dementia Social History Household Members spouse Living Arrangements House Number of Floors (Floors) 3 or More Floors Number of Stairs To Enter/Railing? 1 step to enter and then 6-8 steps with left rail to get to bed room Home Environment Standard Height Toilet,High Toilet,Walk in Shower Home Equipment Front Wheel Walker,Straight Cane Employment Status Retired M2 PT-IP Current Condition Start: 10/20/22 07:48 Freq: NEEDED Status: Active Protocol: Document 10/20/22 08:40 MB (Rec: 10/20/22 09:33 MB [id number]) Physical Therapy Current Condition Current Condition Evaluation Date 10/20/22 Treatment Diagnosis L anterior SLOAN 10/19/22 M3 PT-IP Subjective Start: 10/20/22 07:48 Freq: NEEDED Status: Active Protocol: Document 10/20/22 08:40 MB (Rec: 10/20/22 09:33 MB [id number]) Subjective Physical Therapy Visit Type Type Initial Evaluation Visit Start Time 08:40 Visit Stop Time 09:10 Total Visit Minutes 30 Number of COUNSELING CENTER MANAGER Visits 0 Physical Therapy Visit Comments Patient Comments I like to walk. Patient Goals To go home with family Therapy Pain Assessment Pain When Pain Assessed At Rest Pain Present Pain Present Denied Pain M4 PT-IP Mobility and Gait Start: 10/20/22 07:48 Freq: NEEDED Status: Active Protocol: Document 10/20/22 08:40 MB (Rec: 10/20/22 09:33 MB [id number]) PT-Bed Mobility Assessment Supine to Sit Supine to Sit Independent Sit to Supine Sit to Supine Independent Scooting Scooting to Edge of Bed Independent Scooting Up and Down in Bed Independent PT-Transfer Assessment Sit to and From Stand Sit to and from Stand Standby Assistance,1 Person Assistance,Use of Upper Extremities Equipment Transfer Assistive Device Gait Belt,Front Wheeled Walker Orthotic/Prosthetic Devices or Brace: No Comments Mobility Comments Cues for hand placement and pt moves quickly, PT attempting to manage IV pole. Pt tends to scoot out the left leg with transfers and PT does ed that this is not necessary. Pt asks to urinate and she requires cues for turning in the restroom and maneuvering walker d/t IV pole. Otherwise, she is able to perform underwear management and hygiene I. PT flushes commode. Gait Assessment Gait Gait Assistance Required: Standby Assistance Distance (Feet) 80 Able to Maintain Weight Bearing Status Yes During Gait Assistive Devices Assistive Device Gait Belt,Front Wheeled Walker Orthotic/Prosthetic Devices or Brace: No Gait Deviations General Gait Pattern Antalgic,Step-to Gait Factors Limiting Gait Function Factors Limiting Gait Function Decreased Strength,Limited Range of Motion,Pain Comments Gait Comments Pt gait trains 15'x1, 80'x2 with RW and SBA. Pt presents with step-to gait, leading with LLE and quick peña. PT manages IV pole with pt. Pt reports normal post-op soreness in left hip with increased gait distance and time up. She has some impulsivity and occ lifts hands from walker. PT attempts not to provide too many verbal commands given cognitive challenges and pt's son and are nearby for gait and stair training and report comfortable to assist pt at d/c. Stair Climbing Assessment Evaluation Level of Assist On Stairs Standby Assistance,Contact Guard Assistance,1 Person Assistance Devices Stair Climbing Assistive Devices Left Railing Technique/Endurance Stair Climbing Direction Ascend and Descend Stair Climbing Technique Step to Step Number of Steps Climbed 3 Query Text: Stair Climbing Set # Repetitions (reps) 2 Comments Stair Climbing Comments Pt faces left rail and ascends with right foot first and descends with left foot first. PT provides cues and CGA first rep and then nearby for second set. PT-Balance Assessment Sitting Balance and Reactions Static Sitting Balance Ability Good Dynamic Sitting Balance Ability Good Standing Balance and Reactions Static Standing Balance Ability Good Dynamic Standing Balance Ability Good Device Used RW M5 PT-IP Objective Assessments Start: 10/20/22 07:48 Freq: NEEDED Status: Active Protocol: Document 10/20/22 08:40 MB (Rec: 10/20/22 09:33 MB [id number]) Orientation Orientation/Cognition Level of Alertness Confusional State Orientation Name,Age,Birthday Language Function Ability No Deficits Noted Safety Awareness Decreased Safety Awareness Memory Description Short Term Impaired,Coil Connector Impaired Comments Pt with history of dementia and she has trouble word- finding and with answering questions. Gross Range of Motion Upper Extremity ROM Assessment Within Functional Limits Lower Extremity ROM Assessment Left Impaired Strength Upper Extremity Strength Assessment Within Functional Limits Lower Extremity Strength Assessment Left Impaired Comments Strength Comments MMT deferred post-op and ankle and knee appear normal Sensation Assessment Comments Sensation Comments No sensory complaints and pt has trouble following commands M7 PT-IP Assessment and Plan Start: 10/20/22 07:48 Freq: NEEDED Status: Active Protocol: Document 10/20/22 08:40 MB (Rec: 10/20/22 09:33 MB [id number]) PT Summary Assessment and Plan Potential Rehabilitation Potential Good Status of Condition at Evaluation Evolving Summary Progress Towards Goals Safe For Discharge Assessment Summary Pt is a 72 y/o female who presents with good mobility and low pain post-op left anterior hip last date. Pt moves well, moves quickly and is slightly impulsive. Per nsg , pt has baseline dementia and her cognition is a barrier to safety. and son are nearby for treatment and will be able to assist her at home. She gait trains and performs steps this morning with CGA to SBA and she will be able to have this assistance from family at d/c. She has no further acute care PT needs. Will d/c PT. She is already set up with OPPT in [facility] and she has a RW. Frequency of Treatment Frequency Of Treatment Discharge Precautions Anterior Hip Precautions No Hip Extension,No Hip External Rotation Weight Bearing Status Weight Bearing Status Weight Bear as Tolerated Recommendations To Nursing Amount of Assist Needed Standby Assistance,1 Person Assist Discharge Recommendations PT Discharge Recommendations Home with 02/10 Assist Available,Outpatient PT Transportation Needs at Discharge Private Vehicle
--- NOTE | 2022-10-20 09:44 | OT.IP.EVAL ---
Current Diagnoses Unilateral primary osteoarthritis, left hip (10/19/22) Surgery Performed Operation Date: 10/19/22 13:45 Actual Procedures p Total Hip Arthroplasty/Anterior Approach(Left) - Radha George MD Past Medical History (Last Updated 08/07/18 @ 15:21 by Jane Nelson, RN) Arrhythmia Collapse of right lung Depression (~2005) Fall (~2017) HLD (hyperlipidemia) HTN (hypertension) Hx of concussion (~1965) Hypothyroidism Mediastinal lymphadenopathy Osteoarthritis Pacemaker (~05/2009) Pericardial effusion (~2015) Pneumonia (~06/2014) Sarcoidosis SSS (sick sinus syndrome) UTI (urinary tract infection) Ventricular tachycardia, non-sustained (~02/2016) Surgical History (Last Updated 10/11/22 @ 13:16 by Kaya Montes, [place]) History of bronchoscopy (01/12/15) History of total replacement of right hip Hx of cardiac catheterization Hx of section Hx of tonsillectomy Occupational Therapy Inpatient Evaluation/Re-Eval M1 PT/OT-IP Prior Functional Status Start: 10/20/22 10:13 Freq: NEEDED Status: Active Protocol: Document 10/20/22 09:13 [facility] (Rec: 10/20/22 10:25 [facility] [id number]) Medical Review Prior Functional Status Medical History Reviewed Yes Diet/Fluid Consistency Regular Communication Baseline dementia and some trouble with answering questions and son and are helpful, son is [place] Mobility and Gait Mod I with cane and liked to walk at the park Activities of Daily Living and IADL's Mod I to superv d/t dementia Social History Household Members spouse Living Arrangements House Number of Floors (Floors) 3 or More Floors Number of Stairs To Enter/Railing? 1 step to enter and then 6-8 steps with left rail to get to bed room Home Environment Standard Height Toilet,High Toilet,Walk in Shower Home Equipment Front Wheel Walker,Straight Cane Employment Status Retired M2 OT-IP Current Condition Start: 10/20/22 10:13 Freq: Status: Active Protocol: Document 10/20/22 09:13 [facility] (Rec: 10/20/22 10:25 [facility] [id number]) Occupational Therapy Current Condition Current Condition Evaluation Date 10/20/22 Treatment Diagnosis S/p R TKA Diagnosis Onset Date 10/19/22 M3 OT- IP Subjective and Pain Start: 10/20/22 10:13 Freq: Status: Active Protocol: Document 10/20/22 09:13 [facility] (Rec: 10/20/22 10:25 [facility] [id number]) OT- Subjective Occupational Therapy Visit Type Type Initial Evaluation Visit Start Time 09:14 Visit Stop Time 09:44 Total Visit Minutes 30 Occupational Therapy Visit Comments Patient Comments Pt agreed to get up and get dressed. Patient/Caregiver Goals To go home. OT Pain Assessment Pain When Pain Assessed At Rest Pain Present Pain Present Pain Reported Location Left Leg Intensity 5 Scale Used Numeric (0 - 10) M4 OT- IP ADL's Start: 10/20/22 10:13 Freq: Status: Active Protocol: Document 10/20/22 09:13 [facility] (Rec: 10/20/22 10:25 [facility] [id number]) OT ADL-Grooming General Evaluation Grooming Ability Independent OT ADL-Dressing General Eval Upper Body Dressing Ability Independent Lower Body Dressing Ability Minimal Assistance Comments OT Dressing Comments Assist get brief and pants over her LLE. OT ADL-Toileting General Evaluation Toileting Ability Standby Assistance Comments OT Toileting Comments Pt able to wipe and states would be best to stand to wipe at this time. OT ADL-Bathing Comments OT Bathing Comments Pt not wanting to shower at this time. Pt's son to garbage pick up worker a shower chair, hand held shower spray and non skid mat. M5 OT- IP IADL's Start: 10/20/22 10:13 Freq: Status: Active Protocol: Document 10/20/22 09:13 [facility] (Rec: 10/20/22 10:25 [facility] [id number]) OT-Instrumental Activities of Daily Living Deficits IADL Deficits Identified Deficits Home Safety Awareness Awareness of Need for Assistance at Home Decreased Awareness Ability to Problem Solve Emergency Unable to Problem Solve Situations Medication Management Medication Management Caregiver Administers Money Management Money Management Caregiver Provides Assistance Meal Preparation Meal Preparation Caregiver Provides Assist Survey Field Technician Survey Field Technician Caregiver Provides Assist Driving Driving Caregiver Provides Assist M6 OT- IP Functional Cognition Start: 10/20/22 10:13 Freq: Status: Active Protocol: Document 10/20/22 09:13 [facility] (Rec: 10/20/22 10:25 [facility] [id number]) Cognitive Factors Limiting Selfcare Function Cognitive Ability Level of Alertness Alert Patient Orientation Name Attention Span Ability Capable of Focused Attention, Unable to Sustain Attention Ability to Follow Commands Able to Follow One Step Commands with Increased Time, Able to Follow One Step Commands with Repetition Memory Description Short Term Impaired,Working Impaired Cognitive Comments Cognitive Assessment Comments Pt has dementia and needing assist for all IADL needs and vc for safety and completeness for tasks. M7 OT- IP Mobility and Balance Start: 10/20/22 10:13 Freq: Status: Active Protocol: Document 10/20/22 09:13 [facility] ([facility]20[facility]22 10[id number] OT-Transfer Assessment Sit to and From Stand Sit to and from Stand Contact Guard Assistance, Minimal Assistance Transfers Transfer Ability Standby Assistance Technique Transfer Destination Chair,Toilet Transfer Technique Stand Step Pivot Devices Transfer Assistive Devices Gait Belt,Front Wheeled Walker Comments Mobility Comments Pending on level of standing up from and pt needing SBA to BEULAH to stand and use of grab bar. OT- Balance Assessment Sitting Balance and Reactions Static Sitting Balance Ability Good Dynamic Sitting Balance Ability Good Standing Balance and Reactions Static Standing Balance Ability Good Dynamic Standing Balance Ability Fair M8 OT- IP Objective Assessments Start: 10/20/22 10:13 Freq: Status: Active Protocol: Document 10/20/22 09:13 [facility] (Rec: 10/20/22 10:25 [id number]) OT Gross Range of Motion Upper Extremity Range of Motion Assessment Within Functional Limits OT-Muscle Tone Assessment Muscle Tone WNL Yes M9 OT- IP Assessment and Plan Start: 10/20/22 10:13 Freq: Status: Active Protocol: Document 10/20/22 09:13 [facility] (Rec: 10/20/22 10:25 [id number]) OT Summary Assessment and Plan Potential Rehabilitation Potential Good Analytic Complexity at Evaluation Low Summary OT Impairments Pain,Balance,Functional Mobility,Dressing,Toileting, Bathing,Toilet Transfers, Shower Transfers Progress Towards Goals Progressing Toward Goals Assessment Summary Pt low complexity and main barriers are steps, and will continue to need safety and assist due to her dementia. Pt's son to be staying to assist along with her spouse. Pt to go home with 24/7 assist and outpt PT. Goals Grooming Goal Independent Dressing Goal Standby Assistance Toileting Goal Standby Assistance Bathing Goal Standby Assistance Toilet Transfer Goal Independent Shower Transfer Goal Standby Assistance Days to Meet Goals 5 Frequency of Treatment Frequency Of Treatment Once a Day Treatment Plan OT Treatment Plan ADL Training,Functional Mobility,Patient/Family Education,Discharge Planning Discharge Recommendations OT Discharge Recommendations Home with 24/7 Assist Available,Outpatient PT Home Equipment Needs shower chair, hand held shower spray, integrated marketing manager, non slid mat Transportation Needs at Discharge Private Vehicle
== END 2022-10-20 11:05 | disposition home or self-care (01) ==
LOC: OR 11:44 → AC 11:44
PROVIDERS: Referring Provider Orthopaedic Surgery; Visit Provider Orthopaedic Surgery
PROC: (CPT 27130; principal; 2022-10-19 13:45)
DX: M16.12 Unilateral primary osteoarthritis, left hip (principal); I10 Essential (primary) hypertension; Z95.0 Presence of cardiac pacemaker
CPT/HCPCS: 27130; 36415; 73502; 76000; 85014; 85018; 97161; 97165; 97535; C1776; C9290; J0171; J0690; J1170; J2405; J3010